=== PATIENT | male | born 1960 | race Caucasian/White ===

== ENCOUNTER 2016-04-10 07:56 | Inpatient (IN) | payer OTHER ==
[~2016-04-10] VITALS: Ht 188 cm; Wt 128.5 kg
--- NOTE | ~2016-04-10 | EKG ---
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 : 1960 Requested By: Danielle Barahona Order Number: [id number] MD: Ascencion Rizvi Measurements Intervals [place] Rate: 101 P: 47 MS: 149 QRS: 1 QRSD: 95 T: 102 QT: 361 QTc: 468 Interpretive Statements Sinus tachycardia Probable left atrial enlargement Probable anteroseptal infarct, old Borderline repolarization abnormality Baseline wander in lead(s) V5 No previous ECG available for comparison Electronically Signed On 04-10-2016 8:24:19 E LEARNING DESIGNER by Ascencion Rizvi [email or web address] <ELECTRONICALLY SIGNED> By: Ascencion Rizvi MD 04/10/16 0824 3 3 MD JONNATHAN Pringle
--- NOTE | ~2016-04-10 | 2DMMODE ---
[facility] [place] [address] 2 D/M-MODE ECHOCARDIOGRAM Name: JOCELYN SWANN Daniel Room #: 200-I [facility]#: [id number] Admission: 04/10/16 Attend Phys: Carlton Nova, Discharge: Date of : 64 Date of Service: 04/10/16 1004 Report #: [id number] THIS REPORT FOR: //name// Transthoracic Echocardiography Ordering physician: Cristi Palomino M.D., F.A.C.C. Referring physician: Cristi Palomino M.D., F.A.C.C. Picc Nurse: ILEANA Castro Indications/History: CHF, SOA, DM. BP: 143 / HR: Height: 74in Weight: 284.4lb 85 Study data: M-mode, complete 2D, complete spectral Doppler, and color Doppler. Location: Emergency department. Routine. Image quality was adequate. The study was technically limited due to body habitus. Intravenous contrast (Definity) was administered. 2D measurements Normal Normal LVID ED 60.9mm 36-57 IVS ED 9.1mm 6-11 LVID ES 51.4mm 23-40 LVPW ED 9.2mm 6-11 LA volume 26ml/m2 16-28 AoRoot diam 29.5mm 21-37 index ED LVOT diameter 20mm 18-23 Findings: Left ventricle: The cavity size was dilated. Wall thickness was normal. Systolic function was moderately to severely reduced. The estimated ejection fraction was in the range of 30% to 35%. Severe diffuse hypokinesis. Right ventricle: The cavity size was normal. Systolic function was normal. Right atrium: The atrium was at the upper limits of normal in size. Left atrium: The atrium was normal in size. Volume index: 26ml/m2 (S). [facility] [address] [place] [address] 2 D/M-MODE ECHOCARDIOGRAM Name: JOCELYN SWANN Room #: 200-I [facility]#: [id number] Admission: 04/10/16 Attend Phys: Carlton Nova, Discharge: Date of : 64 Date of Service: 04/10/16 1004 Report #: [id number] Aortic valve: Structurally normal valve. Trileaflet. Doppler: There was no stenosis. No regurgitation. Peak velocity: 93.9cm/s (S). Mitral valve: Structurally normal valve. Doppler: There was no evidence for stenosis. Trivial regurgitation. Peak E-wave velocity: 84.1cm/s. Peak gradient: 2.8mm Hg (D). Peak A-wave velocity: 56.4cm/s. Tricuspid valve: Structurally normal valve. Doppler: There was no evidence for stenosis. Trivial regurgitation. Regurgitant peak velocity: 291.1cm/s. Peak RV-RA gradient: 34mm Hg (S). Pulmonic valve: Structurally normal valve. Doppler: There was no evidence for stenosis. No regurgitation. Pericardium: There was no pericardial effusion. Aorta: Aortic root: The aortic root was normal in size. Pulmonary artery: Systolic pressure was estimated to be 40mm Hg. Diastolic function: The study is not technically sufficient to allow evaluation of LV diastolic function. Systemic veins: Inferior vena cava: The vessel was normal in size; the respirophasic diameter changes were in the normal range (= 50%). Conclusions 1. Left ventricle: Systolic function was moderately to severely reduced. The estimated ejection fraction was in the range of 30% to 35%. Severe diffuse hypokinesis. 2. Aortic valve: Structurally normal valve. Trileaflet. There was no stenosis. No regurgitation. 3. Mitral valve: Structurally normal valve. Trivial regurgitation. 4. Pulmonary arteries: Systolic pressure was estimated to be 40mm Hg. 5. Pericardium, extracardiac: There was no pericardial effusion. <ELECTRONICALLY SIGNED> By: Cristi Palomino MD, [facility] 04/10/16 1223 1004 1223 Cristi Palomino MD, [facility] /dyan
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
[~2016-04-10 07:56] MED LIST: ATIVAN0.5 MG PO; AUGMENTIN 875875 M1 PO; BACTRIM DS TAB1 EACH PO; BYDUREON2 MG SUBQ; BYETTA OR; CEFDINIR300 MG PO; EUCERIN CREME57 GM; FLAGYL500 MG PO; GLUCOPHAGE500 MG PO; HIBICLENS120 ML TP; JANUMET 50-1,01 EACH PO; JANUMET 50-5001 EACH PO; LANTUS100 UNIT/M SUBQ; LAXATIVE5 M1 PO; LEVAQUIN 500 M500 M2 PO; LEVEMIR100 UNIT/1; MIRALAX17 GM PO; NEURONTIN 300300 M1 PO; NEURONTIN600 MG PO; NORCO 5-325 TA1 EACH PO; NOVOLOG100 UNIT/1 SUBQ; OXYCODONE HCL 55 MG PO; OXYCODONE HCL10 MG PO; OXYCONTIN10 M1 PO; OXYCONTIN15 MG PO; PEPCID40 MG PO; PERCOCET 10-321 EACH PO; PERCOCET 5-3251 EACH PO; PREDNISONE 10 M10 M1 PO; PREDNISONE 20 M20 MG PO; SENOKOT-S1 TA2 PO; TRAZODONE HCL100 MG PO; VISTARIL 25 MG25 M1 PO
[2016-04-10 07:57] VITALS: BP 171/111
[2016-04-10 08:27] LABS: ABSOLUTE NEUTROPHILS 6.9 thou/uL (1.4-8.2); BASOPHILS 0.7 % (0.0-2.0); EOSINOPHILS 2.7 % (0.0-3.0); HEMATOCRIT 39.3 % (42.0-52.0); LYMPHOCYTES 14.1 % (24.0-44.0); MCHC 32.9 % (28.0-37.0); MCV 84.9 fL (80.0-100.0); MONOCYTES 10.3 % (1.0-8.0); PLATELET COUNT 290 thou/uL (150-400); POLYS 72.2 % (36.0-66.0); RBC 4.63 mil/uL (4.50-6.00); RDW 14.9 % (10.5-14.5); WBC 9.5 thou/uL (4.0-11.0)
[2016-04-10 08:28] LABS: MANUAL DIFF NO
[2016-04-10 08:29] LABS: CALCIUM 9.8 mg/dL (8.5-10.1); CREATININE 1.8 mg/dL (0.6-1.3); POTASSIUM 4.4 mmol/L (3.5-5.1)
[2016-04-10] MEDS ORDERED: AZITHROMYCIN 2250 MG PO (08:46)
[2016-04-10] MEDS ORDERED: LEVEMIR FL100 UNIT/2 SQ (08:47)
[2016-04-10] MEDS ORDERED: JANUMET XR 1001 EACH PO (08:47)
[2016-04-10 09:26] LABS: CHOLESTEROL 161 mg/dL (<200); HDL CHOLESTEROL 44 mg/dL (>40); LDL CHOLESTEROL 91 mg/dL (<100); TC:HDL 3.7 Ratio (Not establshd); TRIGLYCERIDE 134 mg/dL (<150); VLDL 27 mg/dL (<40)
[2016-04-10 11:50] LABS: URINE BILIRUBIN NEGATIVE (Negative); URINE BLOOD 1+ (Negative); URINE COLOR YELLOW; URINE GLUCOSE-RANDOM* TRACE (Negative); URINE KETONES NEGATIVE (Negative); URINE LEUKOCYTES-REFLEX NEGATIVE (Negative); URINE PROTEIN (DIPSTICK) 2+ (Negative); URINE UROBILINOGEN 0.2 E.U./dl (0.2-1.0)
[2016-04-10 11:51] VITALS: BP 145/88
[2016-04-10 11:58] LABS: SQUAMOUS None Seen /LPF (0-3); URINE RBC 0-2 Rare /HPF (0-2); URINE WBC-REFLEX None Seen /HPF (0-5)
[2016-04-10 11:59] LABS: CASTS None Seen /LPF (None Seen); CRYSTALS None Seen /LPF (None Seen)
[2016-04-10 12:11] VITALS: BP 151/95
[2016-04-10 16:20] VITALS: BP 145/91
[2016-04-10 19:25] VITALS: BP 146/91
[2016-04-10 21:07] LABS: GLYCOHEMOGLOBIN (HGB A1C) 10.4 % (4.8-5.6)
[2016-04-10 23:58] VITALS: BP 112/66
[2016-04-11 03:11] VITALS: BP 130/80
[2016-04-11 04:05] LABS: CALCIUM 9.5 mg/dL (8.5-10.1); CREATININE 1.9 mg/dL (0.6-1.3); POTASSIUM 3.7 mmol/L (3.5-5.1)
[2016-04-11 07:36] VITALS: BP 119/75
[2016-04-11 11:40] VITALS: BP 114/72
[2016-04-11 16:37] VITALS: BP 123/82
[2016-04-11 19:50] VITALS: BP 132/71
[2016-04-12 03:39] VITALS: BP 142/93
[2016-04-12 03:54] LABS: CALCIUM 9.5 mg/dL (8.5-10.1); CREATININE 2.1 mg/dL (0.6-1.3); POTASSIUM 3.9 mmol/L (3.5-5.1)
[2016-04-12 08:00] VITALS: BP 151/101
[2016-04-12] MEDS ORDERED: COZAAR 50 MG TA50 M1 PO (08:07)
[2016-04-12] MEDS ORDERED: CARVEDILOL12.5 MG PO (08:07)
[2016-04-12] MEDS ORDERED: LANTUS100 UNIT/M SUBQ (08:07)
[2016-04-12] MEDS ORDERED: DEMADEX 2020 MG/1 TA PO (08:07)
[2016-04-12] MEDS ORDERED: ASPIR 8181 MG PO (08:07)
[2016-04-12 10:26] VITALS: BP 151/101
[2016-05-11] MEDS ORDERED: LIPITOR 20 MG T20 M1 PO (11:41)
[2016-05-11] MEDS ORDERED: ASPIR 8181 MG PO (13:07)
[2016-05-11] MEDS ORDERED: CARVEDILOL12.5 MG PO (13:08)
[2016-05-11] MEDS ORDERED: COZAAR 50 MG TA50 M2 PO (13:09)
[2016-05-15] MEDS ORDERED: COREG25 MG PO (11:16)
[2016-05-15] MEDS ORDERED: XANAX 0.5 MG0.5 MG PO (11:18)
[2016-05-21] MEDS ORDERED: TRAZODONE HCL50 MG PO (14:28)
[2016-05-30] MEDS ORDERED: CARVEDILOL6.25 MG PO (07:49)
[2016-05-31] MEDS ORDERED: COZAAR 25 MG TA25 M1 PO (07:21)
[2016-05-31] MEDS ORDERED: LORAZEPAM 1 MG T1 M1 PO (07:21)
[2016-05-31] MEDS ORDERED: LASIX 40 MG TAB40 M1 PO (07:21)
[2016-05-31] MEDS ORDERED: SERTRALINE HCL25 M1 PO (07:21)
[2016-05-31] MEDS ORDERED: OXYCODONE HCL 55 MG PO (07:21)
[2016-05-31] MEDS ORDERED: ATORVASTATIN CA40 MG PO (07:21)
[2016-05-31] MEDS ORDERED: CARVEDILOL6.25 MG PO (07:23)
[2016-05-31] MEDS ORDERED: COREG25 MG PO (10:52)
[2016-05-31] MEDS ORDERED: POLY-IRON150 MG PO (10:53)
[2016-05-31] MEDS ORDERED: COZAAR 50 MG TA50 M2 PO (10:54)
[2016-05-31] MEDS ORDERED: HYDROCODONE-AP1 EAC6 PO (10:56)
== END 2016-04-12 11:20 | disposition home or self-care (01) | DRG 291 ==
LOC: ER 07:56 → 2N 09:08 → EROBS 09:08 → 2N 11:57
PROVIDERS: Emergency Medicine; Internal Medicine
DX: I50.23 Acute on chronic systolic (congestive) heart failure (principal); N17.1 Acute kidney failure with acute cortical necrosis; E11.51 Type 2 diabetes mellitus with diabetic peripheral angiopathy without gangrene; E11.22 Type 2 diabetes mellitus with diabetic chronic kidney disease; N18.9 Chronic kidney disease, unspecified; Z88.8 Allergy status to other drugs, medicaments and biological substances; Z82.49 Family history of ischemic heart disease and other diseases of the circulatory system; Z79.82 Long term (current) use of aspirin; Z79.899 Other long term (current) drug therapy; Z79.4 Long term (current) use of insulin; Z23 Encounter for immunization
CPT/HCPCS: 10081

== ENCOUNTER → 2016-10-07 | Outpatient (CLI) | payer OTHER ==
[~2016-10-07] MED LIST changes: +ASPIR 8181 MG PO; +ATORVASTATIN CA40 MG PO; +AZITHROMYCIN 2250 MG PO; +CARVEDILOL12.5 MG PO; +CARVEDILOL6.25 MG PO; +COREG25 MG PO; +COZAAR 25 MG TA25 M1 PO; +COZAAR 50 MG TA50 M1 PO; +COZAAR 50 MG TA50 M2 PO; +DEMADEX 2020 MG/1 TA PO; +HYDROCODONE-AP1 EAC6 PO; +JANUMET XR 1001 EACH PO; +LASIX 40 MG TAB40 M1 PO; +LEVEMIR FL100 UNIT/2 SQ; +LIPITOR 20 MG T20 M1 PO; +LORAZEPAM 1 MG T1 M1 PO; +POLY-IRON150 MG PO; +SERTRALINE HCL25 M1 PO; +TRAZODONE HCL50 MG PO; +XANAX 0.5 MG0.5 MG PO
== END ==
LOC: SLEEPLAB 19:43
DX: G47.33 Obstructive sleep apnea (adult) (pediatric) (principal)

== ENCOUNTER → 2019-05-11 | Outpatient (CLI) | payer OTHER ==
[~2019-05-11] MED LIST changes: +AVAPRO75 MG PO; +NORVASC5 M1 PO; +TORSEMIDE10 MG PO
== END ==
LOC: SJCVCIMAG 04-15 12:04
DX: I35.8 Other nonrheumatic aortic valve disorders (principal); I25.10 Atherosclerotic heart disease of native coronary artery without angina pectoris; E11.22 Type 2 diabetes mellitus with diabetic chronic kidney disease; N18.4 Chronic kidney disease, stage 4 (severe); I50.32 Chronic diastolic (congestive) heart failure; Z79.4 Long term (current) use of insulin; Z95.1 Presence of aortocoronary bypass graft

== ENCOUNTER 2019-05-12 15:27 | Emergency (ER) | payer OTHER ==
[~2019-05-12] VITALS: Ht 188 cm; Wt 136.1 kg
[~2019-05-12 15:27] MED LIST changes: -AVAPRO75 MG PO; -NORVASC5 M1 PO; -TORSEMIDE10 MG PO
[2019-05-12] MEDS ORDERED: NORVASC5 M1 PO (15:51)
[2019-05-12] MEDS ORDERED: TORSEMIDE10 MG PO (15:53)
[2019-05-12] MEDS ORDERED: AVAPRO75 MG PO (15:55)
[2019-05-12 16:18] LABS: ANION GAP 12 mmol/L (7-16); BUN 56 mg/dL (7-18); CALCIUM 8.6 mg/dL (8.5-10.1); CHLORIDE 103 mmol/L (98-107); CO2 24 mmol/L (21-32); CREATININE 3.2 mg/dL (0.7-1.3); GLUCOSE 201 mg/dL (74-106); POTASSIUM 4.6 mmol/L (3.5-5.1); SODIUM 139 mmol/L (136-145)
[2019-05-12 16:26] LABS: BASOPHILS 0.5 % (0.0-2.0); EOSINOPHILS 2.8 % (0.0-3.0); HEMATOCRIT 36.4 % (42.0-52.0); HEMOGLOBIN 11.8 gm/dL (14.0-18.0); LYMPHOCYTES 11.1 % (24.0-44.0); MCH 28.4 pg (26.0-34.0); MCHC 32.3 g/dL (28.0-37.0); MCV 88.1 fL (80.0-100.0); MONOCYTES 10.9 % (1.0-8.0); PLATELET COUNT 251 thou/uL (150-400); POLYS 74.7 % (36.0-66.0); RBC 4.13 mil/uL (4.50-6.00); RDW 13.5 % (10.5-14.5); WBC 14.8 thou/uL (4.0-11.0)
[2019-05-12 16:28] LABS: ALBUMIN 3.5 g/dL (3.4-5.0); SGOT 19 U/L (15-37); SGPT 39 U/L (30-65); TOTAL BILIRUBIN 0.3 mg/dL (<0.1-1.0); TOTAL PROTEIN 8.1 g/dL (6.4-8.2); TROPONIN-I <0.06 ng/mL (<0.06)
[2019-05-12 18:27] LABS: URINE BILIRUBIN NEGATIVE (Negative); URINE BLOOD 1+ (Negative); URINE CLARITY CLEAR; URINE COLOR YELLOW; URINE GLUCOSE-RANDOM* 3+ (Negative); URINE KETONES NEGATIVE (Negative); URINE LEUKOCYTES-REFLEX NEGATIVE (Negative); URINE NITRITE-REFLEX NEGATIVE (Negative); URINE PROTEIN (DIPSTICK) 2+ (Negative); URINE SPECIFIC GRAVITY 1.025 (1.005-1.035); URINE UROBILINOGEN 0.2 E.U./dl (0.2-1.0)
[2019-05-12 19:11] LABS: CRYSTALS None Seen /LPF (None Seen); FINE GRANULAR CASTS 0-3 Few /LPF (None Seen); SQUAMOUS 0-3 Few /LPF (0-3)
[2019-05-12 19:12] LABS: BACTERIA-REFLEX 1-9 Few /HPF (None Seen); URINE RBC 0-2 Rare /HPF (0-2); URINE WBC-REFLEX 0-5 Rare /HPF (0-5)
[2019-05-12 19:17] VITALS: BP 114/52
[2019-05-12] MEDS ORDERED: BACTRIM DS TAB1 EACH PO (19:27)
--- NOTE | 2019-05-13 12:34 | EKG ---
[facility] [place] [address] ELECTROCARDIOGRAM REPORT Name: JOCELYN SWANN Room #: [facility]#: [id number] Admission: 05/12/19 Attend Phys: Discharge: 05/12/19 Date of : 64 Report #: [id number] THIS REPORT FOR: cc: Carlton Nova MD, Neal A. MD Lundgren,Cristi Calix MD 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 05/13/19 0850 1541 1541 Cristi Palomino MD, [facility] /EPI
== END 2019-05-12 19:37 | disposition home or self-care (01) ==
LOC: ER 15:27
PROVIDERS: Physician Assistant
DX: I95.1 Orthostatic hypotension (principal); N39.0 Urinary tract infection, site not specified; R42 Dizziness and giddiness; I12.9 Hypertensive chronic kidney disease with stage 1 through stage 4 chronic kidney disease, or unspecified chronic kidney disease; E11.22 Type 2 diabetes mellitus with diabetic chronic kidney disease; E78.00 Pure hypercholesterolemia, unspecified; N18.3 Chronic kidney disease, stage 3 (moderate); Z79.4 Long term (current) use of insulin; Z88.8 Allergy status to other drugs, medicaments and biological substances